=== PATIENT | female | born 1945 | race Caucasian/White ===

== ENCOUNTER 2018-05-14 05:14 | Day surgery (SDC) | payer OTHER ==
[~2018-05-14 05:14] MED LIST: LISINOPRIL5 MG PO; METFORMIN HCL500 MG PO; PROTONIX40 M1 PO; ZOCOR40 MG PO
[2018-05-14] MEDS ORDERED: MACROBID 100 M100 MG PO (10:12)
[2018-05-14] MEDS ORDERED: ULTRACET PO (10:13)
== END 2018-05-14 13:00 | disposition home or self-care (01) ==
LOC: CIR.AMB 05:14
DX: N81.3 Complete uterovaginal prolapse (principal); N39.3 Stress incontinence (female) (male)
CPT/HCPCS: 57288; 57120; 57210; C1771